=== PATIENT | female | born 1935 | race Hispanic/Latino ===

== ENCOUNTER 2017-01-07 12:44 | Inpatient (IN) | payer MEDICARE, OTHER ==
[2017-01-07 12:57] VITALS: BMI 29.2
[2017-01-07] MEDS ORDERED: Albuterol-Ipratrop 3 mg / 0.5 (3 ml) UD INH STA ×2 (13:09→18:28)
[2017-01-07 13:44] LABS: BASO # 0.1 K/uL (0.0-0.2); BASO % 0.7 % (0.0-2.0); EOS # 0.1 K/uL (0.0-0.7); EOS % 1.2 % (0.0-4.0); HEMATOCRIT 40.6 % (34.0-47.0); LYMPH # 1.4 K/uL (1.0-4.3); LYMPH % 19.2 % (20.0-40.0); MEAN CELL VOLUME 79.1 fL (81.0-99.0); MEAN CORPUSCULAR HEMOGLOBIN 24.4 pg (27.0-31.0); MEAN CORPUSCULAR HGB CONC 30.9 g/dL (33.0-37.0); MEAN PLATELET VOLUME 9.7 fL (7.2-11.7); MONO # 0.8 K/uL (0.0-0.8); MONO % 10.8 % (0.0-10.0); RED CELL DISTRIBUTION WIDTH 15.7 % (11.5-14.5); WHITE BLOOD COUNT 7.5 K/uL (4.8-10.8)
[2017-01-07 13:51] LABS: CHLORIDE 100 mmol/L (98-107)
[2017-01-07 13:52] LABS: SODIUM 140 mmol/L (132-148)
[2017-01-07 13:54] LABS: ALB/GLOB RATIO 1.3 (1.0-2.1); ALKALINE PHOSPHATASE 73 U/L (38-126); ALT/SGPT 22 U/L (9-52); AST/SGOT 31 U/L (14-36); BILIRUBIN,TOTAL 0.5 mg/dL (0.2-1.3); BLOOD UREA NITROGEN 10 mg/dL (7-17); CARBON DIOXIDE 30 mmol/L (22-30); GFR AFRICAN-AMERICAN > 60; TOTAL PROTEIN 7.3 g/dL (6.3-8.3)
[2017-01-07 13:55] LABS: CALCIUM 9.2 mg/dl (8.6-10.4); GLUCOSE,RANDOM 91 mg/dL (65-105)
[2017-01-07] MEDS ORDERED: Albuterol-Ipratrop 3 mg / 0.5 (3 ml) UD ONE ×2 (13:56→18:27)
--- NOTE | 2017-01-07 15:08 | RAD ---
PROCEDURE: CHEST RADIOGRAPH, 1 VIEW HISTORY: SOB COMPARISON: Comparison is made to the previous study dated 06/28/2013 FINDINGS: LUNGS: No significant interval change in the lungs since the previous exam. PLEURA: No pneumothorax or pleural fluid seen. CARDIOVASCULAR: Normal. OSSEOUS STRUCTURES: Again seen is hardware at the left humerus. VISUALIZED UPPER ABDOMEN: Normal. OTHER FINDINGS: None. IMPRESSION: No active disease. No significant interval change since the previous exam.
[2017-01-07 15:28] LABS: RBC URINE 1 /hpf (0-3); URINE BACTERIA RARE (<OCC); URINE BILIRUBIN NEGATIVE (NEGATIVE); URINE BLOOD NEGATIVE (NEGATIVE); URINE COLOR Yellow (YELLOW); URINE GLUCOSE (UA) NORMAL (Normal); URINE KETONE NEGATIVE (NEGATIVE); URINE LEUKOCYTE ESTERASE 2+ Leu/uL (Negative); URINE PROTEIN NEGATIVE (NEGATIVE); URINE UROBILINOGEN NORMAL mg/dL (0.2-1.0); WBC URINE 20 /hpf (0-5)
[2017-01-07] MEDS ORDERED: Piperacillin/Tazobact 3.375 gm 100 ML IV STA (15:33)
--- NOTE | 2017-01-07 15:53 | C.PDOC ---
History Of Present Illness 81 y/o female presents to ED with complaint of mild SOB and for chronic oozing wound to left anterior shoulder for the last 4 years. Patient reports shoulder replacement by Dr. Pulliam 7 years ago[address] Dr[address] Rothman in 2015. Pt states she puts betadeine and gauze on wound every day. Denies fever, chills, nausea, vomiting, or chest pain. Patient states she had nuclear study in 2015 that was negative for osteomyelitis of left shoulder. Previous evals by Dr. Gavin both in house and at his office for the same issue. Time Seen by Provider: 01/07/17 13:03 Chief Complaint (Nursing): Shortness Of Breath History Per: Patient History/Exam Limitations: no limitations Onset/Duration Of Symptoms: Persistent Current Symptoms Are (Timing): Still Present Associated Symptoms: denies: Fever, Chills, Chest Pain, Dizziness, Anxiety Recent travel outside of the [place]: No Past Medical History Reviewed: Historical Data, Nursing Documentation, Vital Signs Vital Signs: Last Vital Signs Temp 98.1 F 01/07/17 13:22 Pulse 100 H 01/07/17 13:22 Resp 24 01/07/17 13:22 BP 168/91 H 01/07/17 13:22 Pulse Ox 98 01/07/17 16:29 - Medical History PMH: Arthritis (gout), Asthma, COPD, Gall Bladder Disease, HTN, Hypothyroidism, Migraine Surgical History: Cholecystectomy, Coronary Stent - [facility] Procedures EXCIS DEBRIDE OF WOUND, INFECT, OR BURN (02/28/15) INCIS W REM OF FORIEGN BODY OR DEV FROM SKIN & SUBCUT TISSUE (08/02/13) INSERTION OF TOTALLY IMPLANTABLE VASC ACCESS DEVIC (04/03/13) Family History: States: Unknown Family Hx - Social History Hx Tobacco Use: No Hx Alcohol Use: No Hx Substance Use: No - Immunization History Hx Tetanus Toxoid Vaccination: No Hx Influenza Vaccination: No Hx Pneumococcal Vaccination: No Review Of Systems Except As Marked, All Systems Reviewed And Found Negative. Constitutional: Negative for: Fever, Chills Cardiovascular: Negative for: Chest Pain Respiratory: Positive for: Shortness of Breath. Negative for: Cough Gastrointestinal: Negative for: Nausea, Vomiting, Abdominal Pain, Diarrhea Skin: Positive for: Lesions (L shoulder). Negative for: Rash Neurological: Negative for: Headache, Dizziness Physical Exam - Physical Exam Appears: Non-toxic, No Acute Distress Skin: Warm, Dry Head: Atraumatic, Normacephalic Chest: Symmetrical Cardiovascular: Rhythm Regular Respiratory: Normal Breath Sounds, No Accessory Muscle Use, No Rales, No Rhonchi , No Wheezing Gastrointestinal/Abdominal: Soft, No Tenderness Back: Normal Inspection, No Vertebral Tenderness, No Paraspinal Tenderness Extremity: Capillary Refill (< 2 sec. ), No Deformity, Other (small leaking chronic wound left anterior shoulder, surrounding erythema and cellulitis, appx 6x6cm ) Neurological/Psych: Oriented x3, Normal Speech ED Course And Treatment - Laboratory Results Result Diagrams: 01/07/17 13:37 01/07/17 13:37 Lab Interpretation: Normal (ua 20 wbc's, d-dimer elevated) ECG: Interpreted By Ca ECG Rhythm: Sinus Rhythm ECG Interpretation: Normal Rate From EC O2 Sat by Pulse Oximetry: 98 Pulse Ox Interpretation: Normal - Radiology CXR: Interpreted by Ca CXR Interpretation: Yes: No Acute Disease - CT Scan/US CT Left Upper Extremity Other Rad Studies (CT/US): Read By Radiologist, Radiology Report Reviewed CT/US Interpretation: IMPRESSION: Limited examination due to beam hardening artifact arising from left shoulder hemiarthroplasty. No evidence abscess within the limits of this examination. Reevaluation Time: 15:49 Reassessment Condition: Improved - Physician Consult Information Outcome Of Conversation: 1500: d/w Dr. Felicia sandhu to Obs. requests Vanco/Zosyn. plan for PICC line. 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 Rothman- Yessy- poor tolerance on Cipro PO 4 yrs ago, no abx since. Disposition Doctor Will See Patient In The: Hospital Counseled Patient/Family Regarding: Studies Performed, Diagnosis - Disposition Disposition: HOSPITALIZED Disposition Time: 15:53 Condition: GOOD - Clinical Impression Clinical Impression: COPD (chronic obstructive pulmonary disease), Prosthetic shoulder infection - Scribe Statement The provider has reviewed the documentation as recorded by the Scribe Sheldon Harrisa Provider Rea Attestation: All medical record entries made by the Rea were at my direction and personally dictated by me. I have reviewed the chart and agree that the record accurately reflects my personal performance of the history, physical exam, medical decision making, and the department course for this patient. I have also personally directed, reviewed, and agree with the discharge instructions and disposition.
[2017-01-07] MEDS ORDERED: Piperacillin/Tazobact 3.375 gm 100 ML IVPB ONE (16:17)
--- NOTE | 2017-01-07 16:25 | CT ---
PROCEDURE: CT left shoulder HISTORY: L shoulder fx 7 yrs ago, puss drainage anterior x COMPARISON: 04/05/2013 TECHNIQUE: 2.5 mm contiguous axial sections were acquired through the left shoulder without intravenous contrast administration. Sagittal and coronal images were reformatted from the axial scan. FINDINGS: The patient is status post left glenohumeral hemiarthroplasty. The evaluation is grossly limited due to beam hardening artifact arising from the prosthesis. There is no gross evidence of prosthesis loosening. The prosthesis is grossly intact. There is cutaneous thickening antral laterally overlying the proximal aspect of the prosthesis. This may be due to cellulitis or old scar. No underlying mass or collection is evident within the limits of this study as described above. Shotty left axillary lymph nodes are noted. No abnormalities of the remaining visualized osseous structures are evident. This includes the left clavicle and visualized left ribs. Visualized left lung parenchyma is unremarkable. IMPRESSION: Limited examination due to beam hardening artifact arising from left shoulder hemiarthroplasty. No evidence abscess within the limits of this examination.
--- NOTE | 2017-01-07 19:06 | CP.PCM.CON ---
History of Present Illness - History of Present Illness History of Present Illness: INFECTIOUS DISEASE CONSULTATION JOSE GUILLEN MD, FACP ER #4 01/07/2017 CHART REVIEWED PT EXAMINED CASE DISCUSSED 81 y/o female presents to ED with complaint of mild but ascerbation SOB and for chronic oozing wound to left anterior shoulder for the last 4 years or so. Patient reports shoulder replacement/Orthopedic repair by Dr. Matta 7-10 years ago. Seen by Dr. Rothman in 2014 in for further evaluation of same. Pt states she puts betadeine and gauze on wound every day. Denies fever, chills , nausea, vomiting, or chest pain. Patient states she had nuclear study in 2015 that was negative for osteomyelitis of left shoulder(?) Pt refuses any aggressive left shoulder Orthopedeic interactions, like removal of foreigh body and prolonged IV antibiotics. Time Seen by Provider: 01/07/17 13:03 Chief Complaint (Nursing): Shortness Of Breath History Per: Patient History/Exam Limitations: no limitations Onset/Duration Of Symptoms: Persistent Current Symptoms Are (Timing): Still Present Associated Symptoms: denies: Fever, Chills, Chest Pain, Dizziness, Anxiety Recent travel outside of the [place]: No DOESN'T REMEMBER ANY ALLERGIES TO MEDS AT THIS POINT IN TIME NO RECENT TOBACCO OR ETOH FAMILY HX NOT APPLICABLE NOT ADHERENT OR COMPLIANT ROS: PER H&P AND PER ER MD'S. Review of Systems - Constitutional Constitutional: Fatigue, Malaise - EENT Eyes: Dry Eye Ears: Decreased Hearing Nose/Mouth/Throat: Dry Mouth - Cardiovascular Cardiovascular: Dyspnea. 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 - Neurological Neurological: Abnormal Hearing - Psychiatric Psychiatric: Anxiety Past Patient History - Tetanus Immunizations Tetanus Immunization: Unknown - Past Medical History & Family History Past Medical History?: Yes - Past Social History Smoking Status: Never Smoked Chewing Tobacco Use: No Cigar Use: No Drugs: Denies Home Situation {Lives}: Alone - CARDIAC Hx Hypertension: Yes - PULMONARY Hx Asthma: Yes Hx Chronic Obstructive Pulmonary Disease (COPD): Yes - NEUROLOGICAL Hx Migraine: Yes - HEENT Hx HEENT Problems: No - RENAL Hx Chronic Kidney Disease: No - ENDOCRINE/METABOLIC Hx Hypothyroidism: Yes - HEMATOLOGICAL/ONCOLOGICAL Hx Blood Disorders: No - INTEGUMENTARY Hx Dermatological Problems: No - MUSCULOSKELETAL/RHEUMATOLOGICAL Hx Arthritis: Yes (gout) - GASTROINTESTINAL Hx Gall Bladder Disease: Yes - GENITOURINARY/GYNECOLOGICAL Hx Genitourinary Disorders: No - PSYCHIATRIC Hx Substance Use: No - SURGICAL HISTORY Hx Cholecystectomy: Yes Hx Coronary Stent: Yes - ANESTHESIA Hx Anesthesia: Yes Hx Anesthesia Reactions: No Hx Malignant Hyperthermia: No Meds Allergies/Adverse Reactions: Allergies Allergy/AdvReac Type Severity Reaction Status Date / Time aspirin Allergy Verified 01/07/17 12:56 codeine Allergy Verified 01/07/17 12:56 theophylline Allergy Verified 01/07/17 12:56 flu vaccine Allergy Uncoded 01/07/17 12:56 iv dye Allergy Uncoded 01/07/17 14:31 - Medications Medications: Current Medications Vancomycin HCl (Vancomycin 1gm In Normal Saline Addvantage) 250 mls @ 166.667 mls/hr IV STAT [facility] Last Admin: 01/07/17 17:49 Dose: 166.667 mls/hr Physical Exam - Constitutional Appears: Non-toxic - Head Exam Head Exam: NORMAL INSPECTION - Eye Exam Eye Exam: Normal appearance - ENT Exam ENT Exam: Mucous Membranes Moist - Respiratory Exam Respiratory Exam: Decreased Breath Sounds, Wheezes - Cardiovascular Exam Cardiovascular Exam: REGULAR RHYTHM - GI/Abdominal Exam GI & Abdominal Exam: Normal Bowel Sounds - Rectal Exam Rectal Exam: Deferred - Extremities Exam Additional comments: FROM LEFT UPPER SHOIULDER A CHRONIC FISTULA WITH PUS THAT SHE TAKES CARE OF DAILY, QUESTION OF NEW CELLULITIS Results - Vital Signs Recent Vital Signs: Last Vital Signs Temp 97.7 F 01/07/17 18:48 Pulse 100 H 01/07/17 18:48 Resp 24 01/07/17 18:48 BP 172/87 H 01/07/17 18:48 Pulse Ox 97 01/07/17 18:48 - Labs Result Diagrams: 01/09/17 11:29 01/09/17 11:29 Assessment & Plan (1) Prosthetic shoulder infection Status: Acute Comment: START TEFLARO 600 IVPB Q 12HRS, ADJUST ACCORDINLY. 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
--- NOTE | 2017-01-07 20:51 | CP.PCM.HP ---
History of Present Illness - History of Present Illness History of Present Illness: PT ADMITTED WITH SUPPURATIVE LEFT SHOULDER, CHRONIC DRAINAGE OF PUS H/O ASTHMA INSOMNIA HTN ANXIETY Present on Admission - Present on Admission Any Indicators Present on Admission: Yes Review of Systems - Constitutional Constitutional: Excessive Sweating - Respiratory Respiratory: Dyspnea, Wheezing - Musculoskeletal Musculoskeletal: Limited Range of Motion, Radiating Pain into Limb - Integumentary Integumentary: Wounds Past Patient History - Tetanus Immunizations Tetanus Immunization: Unknown - Past Medical History & Family History Past Medical History?: Yes - Past Social History Smoking Status: Never Smoked Chewing Tobacco Use: No Cigar Use: No Drugs: Denies Home Situation {Lives}: Alone - CARDIAC Hx Hypertension: Yes - PULMONARY Hx Asthma: Yes Hx Chronic Obstructive Pulmonary Disease (COPD): Yes - NEUROLOGICAL Hx Migraine: Yes - HEENT Hx HEENT Problems: No - RENAL Hx Chronic Kidney Disease: No - ENDOCRINE/METABOLIC Hx Hypothyroidism: Yes - HEMATOLOGICAL/ONCOLOGICAL Hx Blood Disorders: No - INTEGUMENTARY Hx Dermatological Problems: No - MUSCULOSKELETAL/RHEUMATOLOGICAL Hx Arthritis: Yes (gout) - GASTROINTESTINAL Hx Gall Bladder Disease: Yes - GENITOURINARY/GYNECOLOGICAL Hx Genitourinary Disorders: No - PSYCHIATRIC Hx Substance Use: No - SURGICAL HISTORY Hx Cholecystectomy: Yes Hx Coronary Stent: Yes - ANESTHESIA Hx Anesthesia: Yes Hx Anesthesia Reactions: No Hx Malignant Hyperthermia: No Meds Allergies/Adverse Reactions: Allergies Allergy/AdvReac Type Severity Reaction Status Date / Time aspirin Allergy Verified 01/07/17 12:56 codeine Allergy Verified 01/07/17 12:56 theophylline Allergy Verified 01/07/17 12:56 flu vaccine Allergy Uncoded 01/07/17 12:56 iv dye Allergy Uncoded 01/07/17 14:31 Physical Exam - Constitutional Appears: Chronically Ill - Head Exam Head Exam: ATRAUMATIC, NORMOCEPHALIC - Eye Exam Eye Exam: Normal appearance - ENT Exam ENT Exam: Mucous Membranes Moist - Neck Exam Neck exam: Positive for: Normal Inspection - Respiratory Exam Respiratory Exam: Decreased Breath Sounds, Rhonchi - Cardiovascular Exam Cardiovascular Exam: +S1, +S2 - GI/Abdominal Exam GI & Abdominal Exam: Normal Bowel Sounds - Rectal Exam Rectal Exam: Deferred - Extremities Exam Additional comments: LEFT SHOULDER WOUND - Neurological Exam Neurological exam: Alert, Oriented x3 - Psychiatric Exam Psychiatric exam: Anxious - Skin Skin Exam: Intact Results - Vital Signs Recent Vital Signs: Last Vital Signs Temp 97.7 F 01/07/17 18:48 Pulse 100 H 01/07/17 18:48 Resp 24 01/07/17 18:48 BP 172/87 H 01/07/17 18:48 Pulse Ox 97 01/07/17 18:48 - Labs Result Diagrams: 01/07/17 13:37 01/07/17 13:37 Assessment & Plan (1) Prosthetic shoulder infection Status: Acute (2) Bronchial asthma Status: Chronic Priority: Low (3) Essential hypertension Status: Chronic Priority: Medium (4) Anxiety Status: Chronic
[2017-01-07] MEDS: Ceftaroline 600 MG in Sodium Chloride 0.9% 100 ML IVPB SCH (21:57)
[2017-01-08] MEDS ORDERED: Levalbuterol 0.63 MG/3 ML Inhal Soln UD INH SCH
[2017-01-08 01:33] VITALS: RESP 20
[2017-01-08] MEDS ORDERED: Albuterol-Ipratrop 3 mg / 0.5 (3 ml) UD INH STA (02:13)
[2017-01-08] MEDS: Budesonide 0.5 mg/2 ml Inhal Susp UD INH SCH ×2 (08:00→20:14)
[2017-01-08] MEDS: Tiotropium 18 mcg Cap For Inhalation INH SCH ×2 (08:00→14:49)
[2017-01-08] MEDS: Ceftaroline 600 MG in Sodium Chloride 0.9% 100 ML IVPB SCH ×2 (08:11→20:00)
[2017-01-08] MEDS: Nystatin 100,000 Units/ml Oral Susp 5 ml UD PO SCH ×4 (11:06→21:44)
[2017-01-08] MEDS: (Novolin R) Insulin Human Regular 100 units/ml vial SC SCH ×3 (12:18→21:47)
[2017-01-08] MEDS ORDERED: Albuterol-Ipratrop 3 mg / 0.5 (3 ml) UD INH ONE (15:15)
--- NOTE | 2017-01-08 20:21 | CP.PCM.PN ---
Subjective - Date & Time of Evaluation Date of Evaluation: 01/08/17 Time of Evaluation: 20:14 - Subjective Subjective: c/o headache, nausea, eating poorly Objective - Vital Signs/Intake and Output Vital Signs (last 24 hours): Temp Pulse Resp BP Pulse Ox 97.7 F 98 H 20 137/74 97 01/08/17 16:00 01/08/17 16:00 01/08/17 16:00 01/08/17 16:00 01/08/17 16:00 Intake and Output: 01/08/17 01/09/17 18:59 06:59 Intake Total 550 Balance 550 - Medications Medications: Current Medications Alprazolam (Xanax) 0.5 mg PO TID PRN PRN Reason: Anxiety Last Admin: 01/08/17 09:47 Dose: 0.5 mg Budesonide (Pulmicort Respules) 0.5 mg INH RQ12 [facility] Last Admin: 01/08/17 20:14 Dose: Not Given Heparin Sodium (Porcine) (Heparin) 5,000 units SC Q12 [facility] Last Admin: 01/08/17 09:49 Dose: Not Given Ceftaroline Fosamil 600 mg/ (Sodium Chloride) 100 mls @ 100 mls/hr IVPB Q12H [facility] Last Admin: 01/08/17 08:11 Dose: 100 mls/hr Insulin Human Regular (Novolin R) 0 unit SC ACHS [facility] PRN Reason: Protocol Last Admin: 01/08/17 16:30 Dose: Not Given Levalbuterol HCl (Xopenex) 0.63 mg INH RQ8 [facility] Losartan Potassium (Cozaar) 25 mg PO DAILY [facility] Last Admin: 01/08/17 09:48 Dose: 25 mg Nystatin (Nystatin Oral Susp) 5 ml PO QID [facility] Last Admin: 01/08/17 18:05 Dose: 5 ml Tiotropium Anderson (Spiriva) 18 mcg INH RQ24 [facility] Last Admin: 01/08/17 14:49 Dose: 18 mcg Tramadol HCl (Ultram) 50 mg PO Q6 PRN PRN Reason: Pain, moderate (4-7) Last Admin: 01/08/17 09:47 Dose: 50 mg - Labs Labs: PT 11.6 SECONDS (9.7-12.2) 01/07/17 13:37 INR 1.0 01/07/17 13:37 APTT 33 SECONDS (21-34) 01/07/17 13:37 - Constitutional Appears: No Acute Distress - Head Exam Head Exam: ATRAUMATIC, NORMOCEPHALIC - Eye Exam Eye Exam: Normal appearance - ENT Exam ENT Exam: Mucous Membranes Moist - Respiratory Exam Respiratory Exam: Decreased Breath Sounds - Cardiovascular Exam Cardiovascular Exam: +S1, +S2 - GI/Abdominal Exam GI & Abdominal Exam: Normal Bowel Sounds - Rectal Exam Rectal Exam: Deferred - Neurological Exam Neurological Exam: Alert, Awake, Normal Gait - Psychiatric Exam Psychiatric exam: Anxious - Skin Skin Exam: Intact Assessment and Plan (1) Prosthetic shoulder infection Status: Acute (2) Bronchial asthma Status: Chronic (3) Essential hypertension Status: Chronic (4) Anxiety Status: Chronic
[2017-01-09] MEDS: Albuterol-Ipratrop 3 mg / 0.5 (3 ml) UD INH SCH ×4 (02:55→19:50)
[2017-01-09] MEDS: (Novolin R) Insulin Human Regular 100 units/ml vial SC SCH ×4 (07:35→21:16)
[2017-01-09] MEDS: Ceftaroline 600 MG in Sodium Chloride 0.9% 100 ML IVPB SCH (08:02)
[2017-01-09] MEDS: Tiotropium 18 mcg Cap For Inhalation INH SCH (08:30)
[2017-01-09] MEDS: Budesonide 0.5 mg/2 ml Inhal Susp UD INH SCH ×2 (08:31→19:50)
[2017-01-09] MEDS: Nystatin 100,000 Units/ml Oral Susp 5 ml UD PO SCH ×4 (09:49→21:13)
[2017-01-09 11:38] LABS: BASO % 0.4 % (0.0-2.0); EOS % 0.3 % (0.0-4.0); HEMATOCRIT 40.3 % (34.0-47.0); LYMPH # 1.9 K/uL (1.0-4.3); LYMPH % 14.9 % (20.0-40.0); MEAN CELL VOLUME 78.5 fL (81.0-99.0); MEAN CORPUSCULAR HEMOGLOBIN 24.8 pg (27.0-31.0); MEAN CORPUSCULAR HGB CONC 31.5 g/dL (33.0-37.0); MEAN PLATELET VOLUME 10.3 fL (7.2-11.7); MONO # 1.1 K/uL (0.0-0.8); MONO % 8.4 % (0.0-10.0); NRBC % 0.1 % (0.0-2.0); RED CELL DISTRIBUTION WIDTH 15.8 % (11.5-14.5)
[2017-01-09 11:42] LABS: WHITE BLOOD COUNT 12.9 K/uL (4.8-10.8)
[2017-01-09 11:57] LABS: CHLORIDE 99 mmol/L (98-107)
[2017-01-09 11:58] LABS: POTASSIUM 3.6 mmol/L (3.6-5.2); SODIUM 136 mmol/L (132-148)
[2017-01-09 12:00] LABS: GFR AFRICAN-AMERICAN > 60
[2017-01-09 12:01] LABS: BLOOD UREA NITROGEN 15 mg/dL (7-17); CALCIUM 9.3 mg/dl (8.6-10.4); CARBON DIOXIDE 23 mmol/L (22-30); GLUCOSE,RANDOM 140 mg/dL (65-105)
--- NOTE | 2017-01-09 20:51 | CP.PCM.PN ---
Subjective - Date & Time of Evaluation Date of Evaluation: 01/09/17 Time of Evaluation: 20:45 - Subjective Subjective: INFECTIOUS DISEASE PROGRESS NOTE JOSE GUILLEN MD, FACP 3T 357-A 01/09/2017 CHART REVIEWED PT DESCRIBED INTENSIVELY BY STAFF CASE DISCUSSED AT LENGTH CLINICALLY PT HAD NAUSEA AND HEADACHE, REFUSING PRESENT MEDICATION INVIEW OF POSITIVE BLOOD C/S HAVE SWITCHED ANTIBIOTICS IN AN ATTEMPT TO TREAT GRAM POSITIVE BACTEREMIA! ERGO, NMOT TO MENTION THEREFORE OR HENCE, HAVE ORDERED THIS MORNING IV VANCOMYCIN 1 GM IVPB Q 12, WITH A VANCO TROUGH LEVEL WITH HER 3RD DOSE. CELLULITIS APPEARS TO BE QUIETING DOWN, HAVE TOLD THE PATIENT NOT TO WASH OR USE BETADINE TOPICALLY AT FULL STRENGTH, ESPECIALLY. Objective - Vital Signs/Intake and Output Vital Signs (last 24 hours): Temp Pulse Resp BP Pulse Ox 97.8 F 107 H 20 101/62 97 01/09/17 15:30 01/09/17 15:30 01/09/17 15:30 01/09/17 15:30 01/09/17 15:30 Intake and Output: 01/09/17 01/10/17 18:59 06:59 Intake Total 860 Balance 860 - Medications Medications: Current Medications Albuterol/Ipratropium (Duoneb 3 Mg/0.5 Mg (3 Ml) Ud) 3 ml INH RQ6 [facility] Last Admin: 01/09/17 19:50 Dose: 3 ml Alprazolam (Xanax) 1 mg PO BID PRN PRN Reason: Anxiety Last Admin: 01/08/17 21:45 Dose: 1 mg Aspirin (Ecotrin) 81 mg PO DAILY [facility] Last Admin: 01/09/17 09:33 Dose: 81 mg Budesonide (Pulmicort Respules) 0.5 mg INH RQ12 [facility] Last Admin: 01/09/17 19:50 Dose: 0.5 mg Heparin Sodium (Porcine) (Heparin) 5,000 units SC Q12 [facility] Last Admin: 01/09/17 09:33 Dose: 5,000 units Vancomycin HCl 1 gm/ Sodium (Chloride) 250 mls @ 166.7 mls/hr IVPB Q12 [facility] Last Admin: 01/09/17 11:35 Dose: 166.7 mls/hr Insulin Human Regular (Novolin R) 0 unit SC ACHS [facility] PRN Reason: Protocol Last Admin: 01/09/17 12:44 Dose: 1 unit Losartan Potassium (Cozaar) 25 mg PO DAILY [facility] Last Admin: 01/09/17 09:33 Dose: 25 mg Nystatin (Nystatin Oral Susp) 5 ml PO QID [facility] Last Admin: 01/09/17 14:05 Dose: 5 ml Ondansetron HCl (Zofran Inj) 4 mg IVP DAILY@ONCE PRN PRN Reason: Nausea/Vomiting Tiotropium Jay Em (Spiriva) 18 mcg INH RQ24 [facility] Last Admin: 01/09/17 08:30 Dose: 18 mcg Tramadol HCl (Ultram) 50 mg PO Q6 PRN PRN Reason: Pain, moderate (4-7) Last Admin: 01/08/17 09:47 Dose: 50 mg - Labs Labs: 01/09/17 11:29 01/09/17 11:29 PT 11.6 SECONDS (9.7-12.2) 01/07/17 13:37 INR 1.0 01/07/17 13:37 APTT 33 SECONDS (21-34) 01/07/17 13:37 - Constitutional Appears: Non-toxic, Older Than Stated Age - Head Exam Head Exam: ATRAUMATIC - ENT Exam ENT Exam: Mucous Membranes Dry - Neck Exam Neck Exam: Normal Inspection - Respiratory Exam Respiratory Exam: Decreased Breath Sounds - Cardiovascular Exam Cardiovascular Exam: REGULAR RHYTHM - GI/Abdominal Exam GI & Abdominal Exam: Soft, Normal Bowel Sounds. absent: Tenderness - Rectal Exam Rectal Exam: Deferred - Neurological Exam Neurological Exam: Alert, Normal Gait - Psychiatric Exam Psychiatric exam: Anxious, Depressed, Flat Affect - Additional Findings Additional findings: LEFT ANTERIOR SHOULDER AND WALL WITH CHRONIC FISTULA THAT IS OPEN AND WITH EXUDATE. HAVE TAKEN THE LIBERTY OF ASKING DR POTTS, THE ORTHOPEDIST TO RE-EXAMINE HER AND OFF ANOTHER OPINION AFTER SEEING HER YEARS LATER. Assessment and Plan (1) Prosthetic shoulder infection Status: Acute (2) COPD (chronic obstructive pulmonary disease) Status: Acute (3) Abscess Status: Chronic (4) Cellulitis of arm, left Status: Suspected (5) Fistula of left shoulder Status: Chronic (6) Essential hypertension Status: Chronic (7) Bacteremia Assessment & Plan: AWAITING IDENTIFICATION AND SENSITIVES, SINCE PT REFUSING INITAL IV AB, HAVE SWITCH TO IV VANCOMYCIN THIS MORNING. Status: Acute
[2017-01-10] MEDS: Albuterol-Ipratrop 3 mg / 0.5 (3 ml) UD INH SCH ×4 (01:35→19:26)
[2017-01-10] MEDS: (Novolin R) Insulin Human Regular 100 units/ml vial SC SCH ×4 (07:43→21:35)
[2017-01-10] MEDS: Tiotropium 18 mcg Cap For Inhalation INH SCH (08:29)
[2017-01-10] MEDS: Budesonide 0.5 mg/2 ml Inhal Susp UD INH SCH ×2 (08:29→19:26)
[2017-01-10] MEDS: Nystatin 100,000 Units/ml Oral Susp 5 ml UD PO SCH ×4 (10:02→21:36)
--- NOTE | 2017-01-10 12:12 | CON ---
DATE: 01/10/2017 I was called in by Dr. Gavin on consultation to evaluate this patient. PAST MEDICAL HISTORY: The patient had a fracture of the proximal humerus and she had a proximal chay ral replacement arthroplasty and this was done about 7 years ago. A year after the surgery according to the history, she started draining, She was treated initially with some antibiotics. She was rec ommended to have surgical intervention, namely removal of prosthesis, insertion of antibiotic spacer and exchange as a secondary procedure. However, the patient did not want to go through the estephania gical procedures. At this point, the patient was doing well until recently when she had recurrence o f drainage. She always said there was some drainage daily, but the drainage intensified more now and she came in for treatment. She is admitted with a diagnosis of COPD exacerbation and shoulder hardw are infection. PHYSICAL EXAMINATION: Revealed a well-healed surgical incision with a draining sinus with some granulation tissue of the pr oximal part of the incision and some purulent material can be seen at the site of the draining sinus. Then, the motion of shoulder is restricted and minimal erythema noted around the shoulder. X-rays of the shoulder revealed evidence of a hemiarthroplasty of the shoulder. DIAGNOSES: Status post arthroplasty of the shoulder with infection. TREATMENT: 1. At this point, the patient once again refused surgical intervention. 2. Under sterile preconditions, some cultures were obtained from the drainage. 3. The patient is on IV antibiotics. 4. Will follow the patient. Joseph Rothman MD cc: [id number] TT: 01/10/2017 12:11:25 Confirmation # [id number] Dictation # [id number]
[2017-01-10] MEDS ORDERED: Bisacodyl 5mg EC Tab PO ONE (13:15)
--- NOTE | 2017-01-10 14:19 | RAD ---
Left shoulder three views History: Shoulder hardware infection. Comparison: CT scan dated 01/07/2017 Technique: Three views of the left shoulder were performed. Findings: Lucency noted at the bone metal interface at the medial aspect of the proximal humerus at the level the proximal medullary cavity. This is nonspecific however underlying loosening and or infection cannot be excluded. Clinical correlation. Productive change at the superior aspect of the glenohumeral joint space. Moderate acromioclavicular joint space degenerative changes. Question trace left pleural effusion. Impression: Lucency noted at the bone metal interface at the medial aspect of the proximal humerus at the level the proximal medullary cavity. This is nonspecific however underlying loosening and or infection cannot be excluded. Clinical correlation. Productive change at the superior aspect of the glenohumeral joint space. Moderate acromioclavicular joint space degenerative changes. Question trace left pleural effusion.
--- NOTE | 2017-01-10 15:54 | RAD ---
Left humerus two views History: Infection. Cellulitis. Comparison: CT dated 01/07/2017 Findings: Lucency noted at the bone metal interface at the medial aspect of the proximal humerus at the level the proximal medullary cavity. This is nonspecific however underlying loosening and or infection cannot be excluded. Clinical correlation. Productive change at the superior aspect of the glenohumeral joint space. Moderate acromioclavicular joint space degenerative changes. Question trace left pleural effusion. Soft tissue calcifications seen within the soft tissues of the lateral arm at the midshaft of the humerus. Lucency projects over the right axilla, nonspecific. Clinical correlation. Impression: Lucency noted at the bone metal interface at the medial aspect of the proximal humerus at the level the proximal medullary cavity. This is nonspecific however underlying loosening and or infection cannot be excluded. Clinical correlation. Productive change at the superior aspect of the glenohumeral joint space. Moderate acromioclavicular joint space degenerative changes. Question trace left pleural effusion. Soft tissue calcifications seen within the soft tissues of the lateral arm at the midshaft of the humerus. Lucency projects over the right axilla, nonspecific. Clinical correlation.
--- NOTE | 2017-01-10 16:06 | CP.PCM.PN ---
Subjective - Date & Time of Evaluation Date of Evaluation: 01/10/17 Time of Evaluation: 15:51 - Subjective Subjective: pt refusing to go to rehab for Abx Rx; will refer to social service for ins. options refusing PICC line will discuss with ID regarding further Rx blood C&S Staph epi. ? significance Objective - Vital Signs/Intake and Output Vital Signs (last 24 hours): Temp Pulse Resp BP Pulse Ox 97.6 F 94 H 20 111/70 100 01/10/17 09:08 01/10/17 09:08 01/10/17 09:08 01/10/17 09:08 01/10/17 09:08 Intake and Output: 01/10/17 01/10/17 06:59 18:59 Intake Total 590 550 Balance 590 550 - Medications Medications: Current Medications Albuterol/Ipratropium (Duoneb 3 Mg/0.5 Mg (3 Ml) Ud) 3 ml INH RQ6 [facility] Last Admin: 01/10/17 13:44 Dose: 3 ml Alprazolam (Xanax) 1 mg PO BID PRN PRN Reason: Anxiety Last Admin: 01/09/17 21:12 Dose: 1 mg Aspirin (Ecotrin) 81 mg PO DAILY [facility] Last Admin: 01/10/17 09:51 Dose: 81 mg Budesonide (Pulmicort Respules) 0.5 mg INH RQ12 [facility] Last Admin: 01/10/17 08:29 Dose: 0.5 mg Docusate Sodium (Colace) 100 mg PO BID [facility] Heparin Sodium (Porcine) (Heparin) 5,000 units SC Q12 [facility] Last Admin: 01/10/17 09:52 Dose: 5,000 units Vancomycin HCl 1 gm/ Sodium (Chloride) 250 mls @ 166.7 mls/hr IVPB Q12 [facility] Last Admin: 01/10/17 09:52 Dose: 166.7 mls/hr Insulin Human Regular (Novolin R) 0 unit SC ACHS [facility] PRN Reason: Protocol Last Admin: 01/10/17 12:56 Dose: Not Given Losartan Potassium (Cozaar) 25 mg PO DAILY [facility] Last Admin: 01/10/17 09:51 Dose: 25 mg Nystatin (Nystatin Oral Susp) 5 ml PO QID [facility] Last Admin: 01/10/17 14:09 Dose: 5 ml Ondansetron HCl (Zofran Inj) 4 mg IVP DAILY@ONCE PRN PRN Reason: Nausea/Vomiting Tiotropium [place] (Spiriva) 18 mcg INH RQ24 [facility] Last Admin: 01/10/17 08:29 Dose: 18 mcg Tramadol HCl (Ultram) 50 mg PO Q6 PRN PRN Reason: Pain, moderate (4-7) Last Admin: 01/10/17 14:10 Dose: 50 mg - Labs Labs: 01/09/17 11:29 01/09/17 11:29 PT 11.6 SECONDS (9.7-12.2) 01/07/17 13:37 INR 1.0 01/07/17 13:37 APTT 33 SECONDS (21-34) 01/07/17 13:37 - Constitutional Appears: No Acute Distress, Chronically Ill - Head Exam Head Exam: ATRAUMATIC, NORMOCEPHALIC - Eye Exam Eye Exam: Normal appearance - ENT Exam ENT Exam: Mucous Membranes Moist - Neck Exam Neck Exam: Normal Inspection - Respiratory Exam Respiratory Exam: Decreased Breath Sounds - Cardiovascular Exam Cardiovascular Exam: +S1, +S2 - GI/Abdominal Exam GI & Abdominal Exam: Normal Bowel Sounds - Rectal Exam Rectal Exam: Deferred - Neurological Exam Neurological Exam: Alert, Awake, Oriented x3 - Psychiatric Exam Psychiatric exam: Anxious - Skin Additional comments: wound of shoulder Assessment and Plan (1) Prosthetic shoulder infection Status: Acute (2) Bronchial asthma Status: Chronic (3) Essential hypertension Status: Chronic (4) Anxiety Status: Chronic
[2017-01-10] MEDS ORDERED: POLYETHYLENE GLYCOL 3350 17 GM/Dose PACKET PO PRN (16:40)
--- NOTE | 2017-01-10 19:50 | CP.PCM.PN ---
Subjective - Date & Time of Evaluation Date of Evaluation: 01/10/17 Time of Evaluation: 19:43 - Subjective Subjective: INFECTIOUS DISEASE PROGRESS NOTE JOSE GUILLEN MD, FACP 3T 357-A 01/10/2017 CHART REVIEWED PT EXAMINED CASE DISCUSSED 81 YR OLD ELDERLY FEMALE ADMITTED FOR PROGRESS DISCHARGE FROM HER CHRONIC LEFT SINUS TRACK/SHOULDER INFECTION. SHE WAS IN HER USUAL STATE OF [facility] WHEN SHE SOUGHT MEDICAL ADVICE FROM DR LATRELL CERVANTES. AT PRESENT SHE HAS DOCUMENTED GRAM POSITIVE BACTEREMIA-NO OFFICAL IDENTIFICATION OF THE GRAM POSITIVE NOTED IN THE COMPUTER SYSTEM. HER DRAINAGE IS STAUS QUO, PT SEEN BY DR POTTS. SHE HAS CHRONIC DISCHARGE AND PAIN FROM HER LEFT SHOULDER AND ARM. AWAITING VANCOMYCIN TROUGH LEVELS. Objective - Vital Signs/Intake and Output Vital Signs (last 24 hours): Temp Pulse Resp BP Pulse Ox 97.5 F L 101 H 20 123/71 96 01/10/17 15:30 01/10/17 15:30 01/10/17 15:30 01/10/17 15:30 01/10/17 15:30 Intake and Output: 01/10/17 01/11/17 18:59 06:59 Intake Total 550 Balance 550 - Medications Medications: Current Medications Acetaminophen (Tylenol 325mg Tab) 650 mg PO Q6 PRN PRN Reason: Pain, moderate (4-7) Albuterol/Ipratropium (Duoneb 3 Mg/0.5 Mg (3 Ml) Ud) 3 ml INH RQ6 [facility] Last Admin: 01/10/17 19:26 Dose: 3 ml Alprazolam (Xanax) 1 mg PO BID PRN PRN Reason: Anxiety Last Admin: 01/09/17 21:12 Dose: 1 mg Aspirin (Ecotrin) 81 mg PO DAILY [facility] Last Admin: 01/10/17 09:51 Dose: 81 mg Budesonide (Pulmicort Respules) 0.5 mg INH RQ12 [facility] Last Admin: 01/10/17 19:26 Dose: 0.5 mg Docusate Sodium (Colace) 100 mg PO BID [facility] Last Admin: 01/10/17 18:30 Dose: 100 mg Heparin Sodium (Porcine) (Heparin) 5,000 units SC Q12 [facility] Last Admin: 01/10/17 09:52 Dose: 5,000 units Vancomycin HCl 1 gm/ Sodium (Chloride) 250 mls @ 166.7 mls/hr IVPB Q12 [facility] Last Admin: 01/10/17 09:52 Dose: 166.7 mls/hr Insulin Human Regular (Novolin R) 0 unit SC ACHS [facility] PRN Reason: Protocol Last Admin: 01/10/17 18:31 Dose: Not Given Losartan Potassium (Cozaar) 25 mg PO DAILY [facility] Last Admin: 01/10/17 09:51 Dose: 25 mg Nystatin (Nystatin Oral Susp) 5 ml PO QID [facility] Last Admin: 01/10/17 14:09 Dose: 5 ml Ondansetron HCl (Zofran Inj) 4 mg IVP DAILY@ONCE PRN PRN Reason: Nausea/Vomiting Polyethylene Glycol (Miralax) 17 gm PO BID PRN PRN Reason: Constipation Tiotropium [place] (Spiriva) 18 mcg INH RQ24 [facility] Last Admin: 01/10/17 08:29 Dose: 18 mcg Tramadol HCl (Ultram) 50 mg PO Q6 PRN PRN Reason: Pain, moderate (4-7) Last Admin: 01/10/17 14:10 Dose: 50 mg - Labs Labs: 01/09/17 11:29 01/09/17 11:29 PT 11.6 SECONDS (9.7-12.2) 01/07/17 13:37 INR 1.0 01/07/17 13:37 APTT 33 SECONDS (21-34) 01/07/17 13:37 - Constitutional Appears: Non-toxic, Older Than Stated Age, Chronically Ill - Head Exam Head Exam: ATRAUMATIC - Eye Exam Eye Exam: Normal appearance - ENT Exam ENT Exam: Mucous Membranes Moist - Respiratory Exam Respiratory Exam: Chest Wall Tenderness, Wheezes, NORMAL BREATHING PATTERN - Cardiovascular Exam Cardiovascular Exam: REGULAR RHYTHM - GI/Abdominal Exam GI & Abdominal Exam: Soft. absent: Tenderness, Organomegaly, Rebound - Neurological Exam Neurological Exam: Alert, Awake - Psychiatric Exam Psychiatric exam: Anxious, Depressed, Flat Affect - Skin Skin Exam: Warm Assessment and Plan (1) Prosthetic shoulder infection Status: Acute (2) COPD (chronic obstructive pulmonary disease) Status: Acute (3) Abscess Status: Chronic (4) Cellulitis of arm, left Assessment & Plan: VANCOMYCIN TROUGH ORDERED BUT NEVER OBTAINED WITH 3RD DOSE. WILL CHECK WITH NEXT AVAILABLE DOSE AT 9-10PM. PLEASE CALL ME WITH THE RESULTS! VERBALLY DISCUSSED WITH THE STAFF, AGAIN. BACTEREMIA IS NOT IDENTIFIED. 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
[2017-01-11] MEDS: Albuterol-Ipratrop 3 mg / 0.5 (3 ml) UD INH SCH ×4 (01:23→20:39)
[2017-01-11 08:08] LABS: BASO # 0.1 K/uL (0.0-0.2); BASO % 0.7 % (0.0-2.0); EOS # 0.2 K/uL (0.0-0.7); EOS % 2.4 % (0.0-4.0); HEMATOCRIT 39.2 % (34.0-47.0); LYMPH # 2.1 K/uL (1.0-4.3); LYMPH % 26.7 % (20.0-40.0); MEAN CELL VOLUME 79.7 fL (81.0-99.0); MEAN CORPUSCULAR HEMOGLOBIN 25.6 pg (27.0-31.0); MEAN CORPUSCULAR HGB CONC 32.1 g/dL (33.0-37.0); MEAN PLATELET VOLUME 9.9 fL (7.2-11.7); MONO # 0.8 K/uL (0.0-0.8); NRBC % 0.1 % (0.0-2.0); WHITE BLOOD COUNT 7.7 K/uL (4.8-10.8)
[2017-01-11] MEDS: Budesonide 0.5 mg/2 ml Inhal Susp UD INH SCH ×2 (08:12→20:39)
[2017-01-11] MEDS: Tiotropium 18 mcg Cap For Inhalation INH SCH (08:14)
[2017-01-11] MEDS: (Novolin R) Insulin Human Regular 100 units/ml vial SC SCH ×4 (08:15→21:45)
[2017-01-11 08:17] LABS: CHLORIDE 100 mmol/L (98-107)
[2017-01-11 08:18] LABS: SODIUM 138 mmol/L (132-148)
[2017-01-11 08:20] LABS: GFR AFRICAN-AMERICAN > 60
[2017-01-11 08:21] LABS: BLOOD UREA NITROGEN 13 mg/dL (7-17); CARBON DIOXIDE 28 mmol/L (22-30); GLUCOSE,RANDOM 99 mg/dL (65-105)
[2017-01-11] MEDS: Nystatin 100,000 Units/ml Oral Susp 5 ml UD PO SCH ×4 (10:51→22:53)
--- NOTE | 2017-01-11 19:10 | CP.PCM.PN ---
Subjective - Date & Time of Evaluation Date of Evaluation: 01/11/17 Time of Evaluation: 19:01 - Subjective Subjective: breathing better, shoulder wound still with drainage, but decreased. pt still resistant about going to rehab for Abx Objective - Vital Signs/Intake and Output Vital Signs (last 24 hours): Temp Pulse Resp BP Pulse Ox 97.8 F 97 H 20 114/71 98 01/11/17 15:00 01/11/17 15:00 01/11/17 15:00 01/11/17 15:00 01/11/17 15:00 Intake and Output: 01/11/17 01/11/17 06:59 18:59 Intake Total 200 100 Balance 200 100 - Medications Medications: Current Medications Acetaminophen (Tylenol 325mg Tab) 650 mg PO Q6 PRN PRN Reason: Pain, moderate (4-7) Last Admin: 01/11/17 17:39 Dose: 650 mg Albuterol/Ipratropium (Duoneb 3 Mg/0.5 Mg (3 Ml) Ud) 3 ml INH RQ6 [facility] Last Admin: 01/11/17 13:22 Dose: 3 ml Alprazolam (Xanax) 1 mg PO BID PRN PRN Reason: Anxiety Last Admin: 01/10/17 21:36 Dose: 1 mg Aspirin (Ecotrin) 81 mg PO DAILY [facility] Last Admin: 01/11/17 10:51 Dose: 81 mg Budesonide (Pulmicort Respules) 0.5 mg INH RQ12 [facility] Last Admin: 01/11/17 08:12 Dose: 0.5 mg Docusate Sodium (Colace) 100 mg PO BID [facility] Last Admin: 01/11/17 17:38 Dose: 100 mg Heparin Sodium (Porcine) (Heparin) 5,000 units SC Q12 [facility] Last Admin: 01/11/17 10:55 Dose: Not Given Vancomycin HCl 500 mg/ Sodium (Chloride) 100 mls @ 100 mls/hr IVPB Q12H [facility] Last Admin: 01/11/17 10:53 Dose: 100 mls/hr Insulin Human Regular (Novolin R) 0 unit SC ACHS [facility] PRN Reason: Protocol Last Admin: 01/11/17 17:42 Dose: Not Given Losartan Potassium (Cozaar) 25 mg PO DAILY [facility] Last Admin: 01/11/17 10:51 Dose: 25 mg Nystatin (Nystatin Oral Susp) 5 ml PO QID [facility] Last Admin: 01/11/17 17:38 Dose: 5 ml Ondansetron HCl (Zofran Inj) 4 mg IVP DAILY@ONCE PRN PRN Reason: Nausea/Vomiting Polyethylene Glycol (Miralax) 17 gm PO BID PRN PRN Reason: Constipation Tiotropium [place] (Spiriva) 18 mcg INH RQ24 [facility] Last Admin: 01/11/17 08:14 Dose: 18 mcg Tramadol HCl (Ultram) 50 mg PO Q6 PRN PRN Reason: Pain, moderate (4-7) Last Admin: 01/11/17 17:40 Dose: 50 mg - Labs Labs: 01/11/17 07:49 01/11/17 07:49 PT 11.6 SECONDS (9.7-12.2) 01/07/17 13:37 INR 1.0 01/07/17 13:37 APTT 33 SECONDS (21-34) 01/07/17 13:37 - Constitutional Appears: No Acute Distress, Chronically Ill - Head Exam Head Exam: ATRAUMATIC, NORMOCEPHALIC - Eye Exam Eye Exam: Normal appearance - ENT Exam ENT Exam: Mucous Membranes Moist - Respiratory Exam Respiratory Exam: Decreased Breath Sounds - Cardiovascular Exam Cardiovascular Exam: +S1, +S2 - Rectal Exam Rectal Exam: Deferred - Extremities Exam Additional comments: left shoulder wound - Neurological Exam Neurological Exam: Alert, Awake, Oriented x3 - Psychiatric Exam Psychiatric exam: Normal Affect, Normal Mood Assessment and Plan (1) Prosthetic shoulder infection Status: Acute (2) Bronchial asthma Status: Chronic (3) Essential hypertension Status: Chronic (4) Anxiety Status: Chronic
--- NOTE | 2017-01-11 21:12 | CP.PCM.PN ---
Subjective - Date & Time of Evaluation Date of Evaluation: 01/11/17 Time of Evaluation: 21:09 - Subjective Subjective: INFECTIOUS DISEASE PROGRESS NOTE JOSE GUILLEN MD, FACP 3T 357-A 01/11/2017 CHART REVIEWED PT EXAMINED CASE DISCUSSED PAIN IS AN ISSUE ON AND OFF THE BLOOD C/S IS IDENTIFIED COAG NEGATIVE STAPH= MOST PROBABLY A CONTAMINANT. SUGGEST SUPPRESSIVE TREATMENT WITH VANTIN 200MG PO BID, IF THE PAT ALLOWS. I DONT THINK SHE WILL TOLERATE [employer] WORK[employer] VIBRAMYCIN. SHE IS NON COMPLAINT AND NON ADHERENT WITH MEDS FOR A MULTITUDE OF REASONS. Objective - Vital Signs/Intake and Output Vital Signs (last 24 hours): Temp Pulse Resp BP Pulse Ox 97.8 F 97 H 20 114/71 98 01/11/17 15:00 01/11/17 15:00 01/11/17 15:00 01/11/17 15:00 01/11/17 15:00 Intake and Output: 01/11/17 01/12/17 18:59 06:59 Intake Total 100 Balance 100 - Medications Medications: Current Medications Acetaminophen (Tylenol 325mg Tab) 650 mg PO Q6 PRN PRN Reason: Pain, moderate (4-7) Last Admin: 01/11/17 17:39 Dose: 650 mg Albuterol/Ipratropium (Duoneb 3 Mg/0.5 Mg (3 Ml) Ud) 3 ml INH RQ6 [facility] Last Admin: 01/11/17 20:39 Dose: 3 ml Alprazolam (Xanax) 1 mg PO BID PRN PRN Reason: Anxiety Last Admin: 01/11/17 21:06 Dose: 1 mg Aspirin (Ecotrin) 81 mg PO DAILY [facility] Last Admin: 01/11/17 10:51 Dose: 81 mg Budesonide (Pulmicort Respules) 0.5 mg INH RQ12 [facility] Last Admin: 01/11/17 20:39 Dose: 0.5 mg Cefpodoxime Proxetil (Vantin) 200 mg PO Q12H [facility] Docusate Sodium (Colace) 100 mg PO BID [facility] Last Admin: 01/11/17 17:38 Dose: 100 mg Heparin Sodium (Porcine) (Heparin) 5,000 units SC Q12 [facility] Last Admin: 01/11/17 21:07 Dose: 5,000 units Vancomycin HCl 500 mg/ Sodium (Chloride) 100 mls @ 100 mls/hr IVPB Q12H [facility] Last Admin: 01/11/17 10:53 Dose: 100 mls/hr Insulin Human Regular (Novolin R) 0 unit SC ACHS [facility] PRN Reason: Protocol Last Admin: 01/11/17 17:42 Dose: Not Given Losartan Potassium (Cozaar) 25 mg PO DAILY [facility] Last Admin: 01/11/17 10:51 Dose: 25 mg Nystatin (Nystatin Oral Susp) 5 ml PO QID [facility] Last Admin: 01/11/17 17:38 Dose: 5 ml Ondansetron HCl (Zofran Inj) 4 mg IVP DAILY@ONCE PRN PRN Reason: Nausea/Vomiting Polyethylene Glycol (Miralax) 17 gm PO BID PRN PRN Reason: Constipation Tiotropium [place] (Spiriva) 18 mcg INH RQ24 [facility] Last Admin: 01/11/17 08:14 Dose: 18 mcg Tramadol HCl (Ultram) 50 mg PO Q6 PRN PRN Reason: Pain, moderate (4-7) - Labs Labs: 01/11/17 07:49 01/11/17 07:49 PT 11.6 SECONDS (9.7-12.2) 01/07/17 13:37 INR 1.0 01/07/17 13:37 APTT 33 SECONDS (21-34) 01/07/17 13:37 - Constitutional Appears: Non-toxic, No Acute Distress - Head Exam Head Exam: NORMAL INSPECTION - Eye Exam Eye Exam: Normal appearance - ENT Exam ENT Exam: Mucous Membranes Moist - Respiratory Exam Respiratory Exam: Decreased Breath Sounds, Clear to Ausculation Bilateral - Cardiovascular Exam Cardiovascular Exam: REGULAR RHYTHM - GI/Abdominal Exam GI & Abdominal Exam: Soft, Normal Bowel Sounds. 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
[2017-01-11] MEDS: Cefpodoxime (Vantin) 200 mg Tab PO SCH (22:52)
[2017-01-12] MEDS: Albuterol-Ipratrop 3 mg / 0.5 (3 ml) UD INH SCH ×4 (02:15→20:26)
[2017-01-12] MEDS: Tiotropium 18 mcg Cap For Inhalation INH SCH (07:59)
[2017-01-12] MEDS: Budesonide 0.5 mg/2 ml Inhal Susp UD INH SCH ×2 (08:01→20:26)
--- NOTE | 2017-01-12 09:05 | CARD ---
APPROVED REPORT EKG Measurement Heart [id number] <Conclusion> Normal sinus rhythm Normal ECG
[2017-01-12] MEDS: Cefpodoxime (Vantin) 200 mg Tab PO SCH ×2 (09:22→22:01)
[2017-01-12] MEDS: (Novolin R) Insulin Human Regular 100 units/ml vial SC SCH ×4 (09:24→21:55)
[2017-01-12] MEDS: Nystatin 100,000 Units/ml Oral Susp 5 ml UD PO SCH ×4 (09:24→21:53)
--- NOTE | 2017-01-12 19:40 | CP.PCM.PN ---
Subjective - Date & Time of Evaluation Date of Evaluation: 01/12/17 Time of Evaluation: 19:37 - Subjective Subjective: could not tolerate vantin due to gi upset will discuss with id for alternative Rx should wound drainage decreasing with Rx Objective - Vital Signs/Intake and Output Vital Signs (last 24 hours): Temp Pulse Resp BP Pulse Ox 97.6 F 102 H 20 119/71 98 01/12/17 16:00 01/12/17 16:00 01/12/17 16:00 01/12/17 16:00 01/12/17 16:00 - Medications Medications: Current Medications Acetaminophen (Tylenol 325mg Tab) 650 mg PO Q6 PRN PRN Reason: Pain, moderate (4-7) Last Admin: 01/12/17 06:05 Dose: 650 mg Albuterol/Ipratropium (Duoneb 3 Mg/0.5 Mg (3 Ml) Ud) 3 ml INH RQ6 [facility] Last Admin: 01/12/17 14:32 Dose: 3 ml Alprazolam (Xanax) 1 mg PO BID PRN PRN Reason: Anxiety Last Admin: 01/11/17 21:06 Dose: 1 mg Aspirin (Ecotrin) 81 mg PO DAILY [facility] Last Admin: 01/12/17 09:24 Dose: 81 mg Budesonide (Pulmicort Respules) 0.5 mg INH RQ12 [facility] Last Admin: 01/12/17 08:01 Dose: 0.5 mg Cefpodoxime Proxetil (Vantin) 200 mg PO Q12H [facility] Last Admin: 01/12/17 09:22 Dose: 200 mg Docusate Sodium (Colace) 100 mg PO BID [facility] Last Admin: 01/12/17 17:54 Dose: 100 mg Heparin Sodium (Porcine) (Heparin) 5,000 units SC Q12 [facility] Last Admin: 01/12/17 09:23 Dose: 5,000 units Insulin Human Regular (Novolin R) 0 unit SC ACHS [facility] PRN Reason: Protocol Last Admin: 01/12/17 16:30 Dose: Not Given Losartan Potassium (Cozaar) 25 mg PO DAILY [facility] Last Admin: 01/12/17 09:25 Dose: 25 mg Metoclopramide HCl (Reglan) 5 mg PO ACHS [facility] Last Admin: 01/12/17 16:29 Dose: 5 mg Nystatin (Nystatin Oral Susp) 5 ml PO QID [facility] Last Admin: 01/12/17 17:54 Dose: 5 ml Ondansetron HCl (Zofran Inj) 4 mg IVP DAILY@ONCE PRN PRN Reason: Nausea/Vomiting Last Admin: 01/12/17 13:05 Dose: 4 mg Polyethylene Glycol (Miralax) 17 gm PO BID PRN PRN Reason: Constipation Tiotropium [place] (Spiriva) 18 mcg INH RQ24 [facility] Last Admin: 01/12/17 07:59 Dose: 18 mcg Tramadol HCl (Ultram) 50 mg PO Q6 PRN PRN Reason: Pain, moderate (4-7) Last Admin: 01/12/17 06:05 Dose: 50 mg - Labs Labs: 01/11/17 07:49 01/11/17 07:49 PT 11.6 SECONDS (9.7-12.2) 01/07/17 13:37 INR 1.0 01/07/17 13:37 APTT 33 SECONDS (21-34) 01/07/17 13:37 - Constitutional Appears: No Acute Distress, Chronically Ill - Head Exam Head Exam: ATRAUMATIC, NORMOCEPHALIC - Eye Exam Eye Exam: Normal appearance - ENT Exam ENT Exam: Mucous Membranes Moist - Neck Exam Neck Exam: Normal Inspection - Respiratory Exam Respiratory Exam: Decreased Breath Sounds - Cardiovascular Exam Cardiovascular Exam: +S1, +S2 - GI/Abdominal Exam GI & Abdominal Exam: Normal Bowel Sounds - Rectal Exam Rectal Exam: Deferred - Extremities Exam Additional comments: left shoulder with decreased ROM - Neurological Exam Neurological Exam: Alert, Awake, Normal Gait, Oriented x3 - Psychiatric Exam Psychiatric exam: Normal Affect, Normal Mood - Skin Additional comments: wound left shoulder area Assessment and Plan (1) Prosthetic shoulder infection Status: Acute (2) Bronchial asthma Status: Chronic (3) Essential hypertension Status: Chronic (4) Anxiety Status: Chronic
[2017-01-13] MEDS: Albuterol-Ipratrop 3 mg / 0.5 (3 ml) UD INH SCH ×2 (02:08→09:01)
[2017-01-13 07:35] VITALS: BP 134/80; PULSE 99; TEMP 98.2; O2SAT 96
[2017-01-13] MEDS: (Novolin R) Insulin Human Regular 100 units/ml vial SC SCH ×2 (07:41→12:43)
[2017-01-13] MEDS: Budesonide 0.5 mg/2 ml Inhal Susp UD INH SCH (09:01)
[2017-01-13] MEDS: Tiotropium 18 mcg Cap For Inhalation INH SCH (09:02)
[2017-01-13] MEDS: Nystatin 100,000 Units/ml Oral Susp 5 ml UD PO SCH (09:33)
--- NOTE | 2017-01-13 11:39 | CP.PCM.PN ---
Subjective - Date & Time of Evaluation Date of Evaluation: 01/13/17 Time of Evaluation: 11:00 - Subjective Subjective: [facility] [employer] Pt seen today , states feels better , pain improved, denies any abdominal pain , N/V, tolerated vantin last night and am without any issues , a febrile D/W Dr. Lundberg , stable for discharge home today and f/u with Dr. Gavin office in 1 week Discharge plan discussed with patient who understand s and agrees with plan . Pt instructed to returns to ED if symptoms get worse or any other concerning symptoms RX given transportation arranged for home Objective - Vital Signs/Intake and Output Vital Signs (last 24 hours): Temp Pulse Resp BP Pulse Ox 98.2 F 99 H 20 134/80 96 01/13/17 07:33 01/13/17 07:33 01/13/17 07:33 01/13/17 07:33 01/13/17 07:33 Intake and Output: 01/13/17 01/13/17 06:59 18:59 Intake Total 200 Balance 200 - Medications Medications: Current Medications Acetaminophen (Tylenol 325mg Tab) 650 mg PO Q6 PRN PRN Reason: Pain, moderate (4-7) Last Admin: 01/12/17 06:05 Dose: 650 mg Albuterol/Ipratropium (Duoneb 3 Mg/0.5 Mg (3 Ml) Ud) 3 ml INH RQ6 [facility] Last Admin: 01/13/17 09:01 Dose: 3 ml Alprazolam (Xanax) 1 mg PO BID PRN PRN Reason: Anxiety Last Admin: 01/12/17 21:58 Dose: 1 mg Aspirin (Ecotrin) 81 mg PO DAILY [facility] Last Admin: 01/13/17 09:32 Dose: 81 mg Budesonide (Pulmicort Respules) 0.5 mg INH RQ12 [facility] Last Admin: 01/13/17 09:01 Dose: 0.5 mg Cefpodoxime Proxetil (Vantin) 200 mg PO Q12H [facility] Last Admin: 01/12/17 22:01 Dose: 200 mg Docusate Sodium (Colace) 100 mg PO BID [facility] Last Admin: 01/13/17 09:31 Dose: 100 mg Heparin Sodium (Porcine) (Heparin) 5,000 units SC Q12 [facility] Last Admin: 01/13/17 09:32 Dose: Not Given Insulin Human Regular (Novolin R) 0 unit SC [facility] PRN Reason: Protocol Last Admin: 01/13/17 07:41 Dose: Not Given Losartan Potassium (Cozaar) 25 mg PO DAILY [facility] Last Admin: 01/13/17 09:31 Dose: 25 mg Metoclopramide HCl (Reglan) 5 mg PO ACHS [facility] Last Admin: 01/13/17 10:35 Dose: 5 mg Nystatin (Nystatin Oral Susp) 5 ml PO QID [facility] Last Admin: 01/13/17 09:33 Dose: Not Given Ondansetron HCl (Zofran Inj) 4 mg IVP DAILY@ONCE PRN PRN Reason: Nausea/Vomiting Last Admin: 01/12/17 13:05 Dose: 4 mg Polyethylene Glycol (Miralax) 17 gm PO BID PRN PRN Reason: Constipation Tiotropium [place] (Spiriva) 18 mcg INH RQ24 [facility] Last Admin: 01/13/17 09:02 Dose: 18 mcg Tramadol HCl (Ultram) 50 mg PO Q6 PRN PRN Reason: Pain, moderate (4-7) Last Admin: 01/13/17 10:36 Dose: 50 mg - Labs Labs: 01/11/17 07:49 01/11/17 07:49 PT 11.6 SECONDS (9.7-12.2) 01/07/17 13:37 INR 1.0 01/07/17 13:37 APTT 33 SECONDS (21-34) 01/07/17 13:37
[2017-01-13] MEDS: Cefpodoxime (Vantin) 200 mg Tab PO SCH (12:42)
--- NOTE | 2017-01-19 20:54 | CP.PCM.DIS ---
Provider - Provider Date of Admission: 01/07/17 15:34 Attending physician: Alexander Lundberg MD Time Spent in preparation of Discharge (in minutes): 35 Diagnosis - Discharge Diagnosis (1) Prosthetic shoulder infection Status: Acute (2) Bronchial asthma Status: Chronic Priority: Low (3) Essential hypertension Status: Chronic Priority: Medium (4) Anxiety Status: Chronic Hospital Course - Lab Results Lab Results: Micro Results 01/10/17 16:45 Blood Blood Culture - Final NO GROWTH AFTER 5 DAYS 01/10/17 16:45 Blood Gram Stain - Final TEST NOT PERFORMED 01/10/17 13:08 Blood Blood Culture - Final NO GROWTH AFTER 5 DAYS 01/10/17 13:08 Blood Gram Stain - Final TEST NOT PERFORMED 01/10/17 Unknown Shoulder - Left Gram Stain - Final 01/10/17 Unknown Shoulder - Left Wound Culture - Final Serratia Marcescens 01/07/17 16:00 Blood-Venous Blood Culture - Final NO GROWTH AFTER 5 DAYS 01/07/17 16:00 Blood-Venous Gram Stain - Final TEST NOT PERFORMED 01/07/17 16:15 Blood-Venous S.aureus & Coag-Neg Staph PNA FISH - Final 01/07/17 16:15 Blood-Venous Blood Culture - Final Coagulase Neg Staphylococcus 01/07/17 16:15 Blood-Venous Gram Stain - Final Most Recent Lab Values WBC 7.7 K/uL (4.8-10.8) 01/11/17 07:49 RBC 4.92 Mil/uL (3.80-5.20) 01/11/17 07:49 Hgb 12.6 g/dL (11.0-16.0) 01/11/17 07:49 Hct 39.2 % (34.0-47.0) 01/11/17 07:49 MCV 79.7 fL (81.0-99.0) L 01/11/17 07:49 MCH 25.6 pg (27.0-31.0) L 01/11/17 07:49 MCHC 32.1 g/dL (33.0-37.0) L 01/11/17 07:49 RDW 16.0 % (11.5-14.5) H 01/11/17 07:49 Plt Count 255 K/uL (130-400) 01/11/17 07:49 MPV 9.9 fL (7.2-11.7) 01/11/17 07:49 Neut % (Auto) 60.2 % (50.0-75.0) 01/11/17 07:49 Lymph % (Auto) 26.7 % (20.0-40.0) 01/11/17 07:49 [place] % (Auto) 10.0 % (0.0-10.0) 01/11/17 07:49 Eos % (Auto) 2.4 % (0.0-4.0) 01/11/17 07:49 Baso % (Auto) 0.7 % (0.0-2.0) 01/11/17 07:49 Neut # 4.6 K/uL (1.8-7.0) 01/11/17 07:49 Lymph # 2.1 K/uL (1.0-4.3) 01/11/17 07:49 [place] # 0.8 K/uL (0.0-0.8) 01/11/17 07:49 Eos # 0.2 K/uL (0.0-0.7) 01/11/17 07:49 Baso # 0.1 K/uL (0.0-0.2) 01/11/17 07:49 ESR 53 mm/hr (0-20) H 01/11/17 07:49 PT 11.6 SECONDS (9.7-12.2) 01/07/17 13:37 INR 1.0 01/07/17 13:37 APTT 33 SECONDS (21-34) 01/07/17 13:37 D-Dimer, Quantitative 456 ng/mlDDU (0-243) H 01/07/17 13:37 Sodium 138 mmol/L (132-148) 01/11/17 07:49 Potassium 4.0 mmol/L (3.6-5.2) 01/11/17 07:49 Chloride 100 mmol/L (98-107) 01/11/17 07:49 Carbon Dioxide 28 mmol/L (22-30) 01/11/17 07:49 Anion Gap 15 (10-20) 01/11/17 07:49 BUN 13 mg/dL (7-17) 01/11/17 07:49 Creatinine 0.7 MG/DL (0.7-1.2) 01/11/17 07:49 Est GFR ( Amer) > 60 01/11/17 07:49 Est GFR (Non-Af Amer) > 60 01/11/17 07:49 POC Glucose (mg/dL) 113 mg/dL (65-110) H 01/13/17 11:04 Random Glucose 99 mg/dL (65-105) 01/11/17 07:49 Hemoglobin A1c 6.2 % (4.2-6.5) 01/11/17 07:49 Calcium 9.0 mg/dl (8.6-10.4) 01/11/17 07:49 Total Bilirubin 0.5 mg/dL (0.2-1.3) 01/07/17 13:37 AST 31 U/L (14-36) 01/07/17 13:37 ALT 22 U/L (9-52) 01/07/17 13:37 Alkaline Phosphatase 73 U/L (38-126) 01/07/17 13:37 Troponin I < 0.0120 ng/mL (0.00-0.120) 01/07/17 13:37 NT-Pro-B Natriuret Pep 101 pg/mL (0-900) 01/07/17 13:37 Total Protein 7.3 g/dL (6.3-8.3) 01/07/17 13:37 Albumin 4.1 g/dL (3.5-5.0) 01/07/17 13:37 Globulin 3.2 gm/dL (2.2-3.9) 01/07/17 13:37 Albumin/Globulin Ratio 1.3 (1.0-2.1) 01/07/17 13:37 Urine Color Yellow (YELLOW) 01/07/17 15:18 Urine Clarity Hazy (Clear) 01/07/17 15:18 Urine pH 8.0 (5.0-8.0) 01/07/17 15:18 Ur Specific [place] 1.014 (1.003-1.030) 01/07/17 15:18 Urine Protein Negative mg/dL (NEGATIVE) 01/07/17 15:18 Urine Glucose (UA) Normal mg/dL (Normal) 01/07/17 15:18 Urine Ketones Negative mg/dL (NEGATIVE) 01/07/17 15:18 Urine Blood Negative (NEGATIVE) 01/07/17 15:18 Urine Nitrate Negative (NEGATIVE) 01/07/17 15:18 Urine Bilirubin Negative (NEGATIVE) 01/07/17 15:18 Urine Urobilinogen Normal mg/dL (0.2-1.0) 01/07/17 15:18 Ur Leukocyte Esterase 2+ [place]/uL (Negative) H 01/07/17 15:18 Urine WBC (Auto) 20 /hpf (0-5) H 01/07/17 15:18 Urine RBC (Auto) 1 /hpf (0-3) 01/07/17 15:18 Ur Squamous Epith Cells 10 /hpf (0-5) H 01/07/17 15:18 Urine Bacteria Rare (<OCC) 01/07/17 15:18 Vancomycin Trough 19.0 ug/mL (5.0-10.0) H 01/10/17 21:27 Discharge Exam - Head Exam Head Exam: ATRAUMATIC, NORMOCEPHALIC - Eye Exam Eye Exam: Normal appearance Pupil Exam: NORMAL ACCOMODATION - ENT Exam ENT Exam: Mucous Membranes Moist - Respiratory Exam Respiratory Exam: Decreased Breath Sounds - Cardiovascular Exam Cardiovascular Exam: +S1, +S2 - GI/Abdominal Exam GI & Abdominal Exam: Normal Bowel Sounds - Rectal Exam Rectal Exam: Deferred - Neurological Exam Neurological exam: Alert, Oriented x3 - Psychiatric Exam Psychiatric exam: Normal Affect, Normal Mood - Skin Skin Exam: Dry Discharge Plan - Discharge Medications Prescriptions: Metoclopramide [Reglan] 5 mg PO BIDAC 7 Days Cefpodoxime [Vantin] 200 mg PO Q12H #14 tab ALPRAZolam [Xanax] 1 mg PO BID PRN #60 tab PRN Reason: Anxiety - Follow Up Plan Condition: GOOD Disposition: HOME/ ROUTINE Patient education suggested?: Yes Instructions: Metoclopramide (By mouth), Alprazolam (By mouth), Cefpodoxime Proxetil (By mouth), Cellulitis (DC), COPD (Chronic Obstructive Pulmonary Disease) (DC), Cellulitis (GEN), Hypertension (DC), Hypertension (GEN) Additional Instructions: Please f/u with Dr. Gavin office in 1 week f/u with DR. Lundberg office in 1 week Continue medication as per Med. Rec. Referrals: Benigno Gavin MD [Staff Provider] - Alexander Lundberg MD [Staff Provider] -
== END 2017-01-13 12:53 | disposition home or self-care (01) | DRG 560 ==
LOC: C.ER 12:44 → C.9E 15:34 → C.3T 18:29
PROVIDERS: ADMIT Internal Medicine Pulmonary Disease; ATTEND Internal Medicine Pulmonary Disease
DX: T84.59XA Infection and inflammatory reaction due to other internal joint prosthesis, initial encounter (principal); J44.1 Chronic obstructive pulmonary disease with (acute) exacerbation; L03.114 Cellulitis of left upper limb; R78.81 Bacteremia; B96.89 Other specified bacterial agents as the cause of diseases classified elsewhere; I10 Essential (primary) hypertension; M25.112 Fistula, left shoulder; Y79.2 Prosthetic and other implants, materials and accessory orthopedic devices associated with adverse incidents; Y83.9 Surgical procedure, unspecified as the cause of abnormal reaction of the patient, or of later complication, without mention of misadventure at the time of the procedure; J45.909 Unspecified asthma, uncomplicated; F41.9 Anxiety disorder, unspecified; G47.00 Insomnia, unspecified; E03.9 Hypothyroidism, unspecified; M10.9 Gout, unspecified; Z95.5 Presence of coronary angioplasty implant and graft; Z91.14 Patient's other noncompliance with medication regimen

== ENCOUNTER 2017-12-01 18:01 | Emergency (ER) | payer MEDICARE ==
[2017-12-01 18:15] VITALS: BMI 29.7
--- NOTE | 2017-12-01 19:07 | C.PDOC ---
History Of Present Illness <Job Melendez - Last Filed: 12/02/17 09:19> <Zak Fuentes - Last Filed: 12/02/17 17:04> Patient is a 82 year old female with past medical history of gout, CAD (cardiac stent 2011) and lung disease, who presents to the ED with complaints of shortness of breath, that started yesterday. Patient noted that she could not walk across the room without being short of breath. Patient reports associated symptoms of palpitations, dizziness and right ankle swelling. Patient reports that she feels better in propped up position. Patient denies chest pain, cough, headache, syncope. (Job Melendez) History Per: Patient History/Exam Limitations: no limitations Onset/Duration Of Symptoms: Days Current Symptoms Are (Timing): Still Present Severity: Mild <Job Melendez - Last Filed: 12/02/17 09:19> <Zak Fuentes - Last Filed: 12/02/17 17:04> Time Seen by Provider: 12/01/17 18:33 Chief Complaint (Nursing): Shortness Of Breath Past Medical History - Medical History PMH: Arthritis (gout), Asthma, COPD, Gall Bladder Disease, HTN, Hypothyroidism, Migraine Denies: Chronic Kidney Disease Surgical History: Cholecystectomy, Coronary Stent Family History: States: Unknown Family Hx - Social History Hx Tobacco Use: No Hx Alcohol Use: No Hx Substance Use: No - Immunization History Hx Tetanus Toxoid Vaccination: No Hx Influenza Vaccination: No (DUE TO ALLERGY) Hx Pneumococcal Vaccination: No <Job Melendez - Last Filed: 12/02/17 09:19> Vital Signs: Last Vital Signs Temp 98 F 12/01/17 23:11 Pulse 102 H 12/01/17 23:11 Resp 18 12/01/17 23:11 BP 153/76 H 12/01/17 23:11 Pulse Ox 96 12/02/17 09:19 - [facility] Procedures EXCIS DEBRIDE OF WOUND, INFECT, OR BURN (02/28/15) INCIS W REM OF FORIEGN BODY OR DEV FROM SKIN & SUBCUT TISSUE (08/02/13) INSERTION OF TOTALLY IMPLANTABLE VASC ACCESS DEVIC (04/03/13) ED Course And Treatment O2 Sat by Pulse Oximetry: 96 <Job Melendez - Last Filed: 12/02/17 09:19> - Laboratory Results Result Diagrams: 12/01/17 19:52 12/01/17 19:52 <Zak Fuentes - Last Filed: 12/02/17 17:04> Medical Decision Making <Job Melendez - Last Filed: 12/02/17 09:19> <Zak Fuentes - Last Filed: 12/02/17 17:04> Medical Decision Making: pt seen with resident. 82 yo female presents with exertional dyspnea, ro pe vs chf vs pna. during w/u. pt declines further eval. signs ama. states she will return with worsneing (Zak Fuentes) Disposition <Job Melendez - Last Filed: 12/02/17 09:19> - Disposition Disposition Time: 22:40 <Zak Fuentes - Last Filed: 12/02/17 17:04> - Disposition Referrals: [facility] [Outside] [facility] [Outside] Disposition: AGAINST MEDICAL ADVICE Condition: UNKNOWN Additional Instructions: please follow u pwith your doctor. return to er with worsening symptoms or concerns. Instructions: Shortness of Breath (Dyspnea), Leaving Against Medical Advice Forms: [facility] (Kiswahili) - Clinical Impression Clinical Impression: Dyspnea, Left against medical advice
[2017-12-01 19:56] LABS: BASO # 0.1 K/uL (0.0-0.2); BASO % 0.9 % (0.0-2.0); EOS # 0.2 K/uL (0.0-0.7); EOS % 1.7 % (0.0-4.0); HEMOGLOBIN 12.3 g/dL (11.0-16.0); LYMPH % 22.7 % (20.0-40.0); MEAN CELL VOLUME 78.4 fL (81.0-99.0); MEAN CORPUSCULAR HEMOGLOBIN 25.3 pg (27.0-31.0); MEAN CORPUSCULAR HGB CONC 32.3 g/dL (33.0-37.0); MEAN PLATELET VOLUME 10.2 fL (7.2-11.7); MONO # 0.7 K/uL (0.0-0.8); MONO % 8.3 % (0.0-10.0); NEUT # 5.8 K/uL (1.8-7.0); NEUT % 66.4 % (50.0-75.0); NRBC % 0.1 % (0.0-2.0); RBC 4.85 Mil/uL (3.80-5.20); RED CELL DISTRIBUTION WIDTH 15.6 % (11.5-14.5); WHITE BLOOD COUNT 8.7 K/uL (4.8-10.8)
[2017-12-01 20:08] LABS: ALB/GLOB RATIO 1.1 (1.0-2.1); ALBUMIN 3.9 g/dL (3.5-5.0); GFR AFRICAN-AMERICAN > 60; GFR NON-AFRICAN AMERICAN > 60
[2017-12-01 20:09] LABS: ALT/SGPT 26 U/L (9-52); AST/SGOT 29 U/L (14-36); BLOOD UREA NITROGEN 9 mg/dL (7-17)
[2017-12-01 20:19] LABS: B-TYPE NATRIURETIC PEPTIDE 197 pg/mL (0-900)
[2017-12-01] MEDS ORDERED: Iodixanol 320 MG/ML 100 ML BOTTLE IV ONE (20:30)
[2017-12-01] MEDS ORDERED: Albuterol-Ipratrop 3 mg / 0.5 (3 ml) UD INH STA (22:43)
[2017-12-01] MEDS ORDERED: Albuterol-Ipratrop 3 mg / 0.5 (3 ml) UD ONE (22:45)
[2017-12-01 23:18] VITALS: BP 153/76; PULSE 102; RESP 18; TEMP 98
--- NOTE | 2017-12-02 08:23 | RAD ---
HISTORY: COMPARISON: 01/07/2017. TECHNIQUE: Chest PA and lateral FINDINGS: LINES AND TUBES: None. LUNG AND PLEURA: The lungs are well inflated and clear. HEART AND MEDIASTINUM: The heart is not enlarged. The hilar and mediastinal contours are within normal limits. SKELETAL STRUCTURES: The bony structures are within normal limits for the patient's age. Status post left shoulder arthroplasty. VISUALIZED UPPER ABDOMEN: Normal. OTHER FINDINGS: None. IMPRESSION: No active pulmonary disease.
[2017-12-02 09:19] VITALS: O2SAT 96
--- NOTE | 2017-12-02 10:12 | CARD ---
APPROVED REPORT EKG Measurement Heart [id number] <Conclusion> Sinus tachycardia with occasional premature ventricular complexes Otherwise normal ECG
== END 2017-12-01 23:21 | disposition left against medical advice (07) ==
LOC: C.ER 18:01
DX: R06.00 Dyspnea, unspecified (principal)